=== PATIENT | male | born 1985 | race Caucasian/White ===

== ENCOUNTER 2017-01-11 12:04 | Emergency (ER) | payer OTHER ==
--- NOTE | ~2017-01-11 | CR127 ---
[facility] A Service of [facility] RADIOLOGY TEXT RESULTS PATIENT: YOVANNY LOCKETT LOCATION: SED : 85 UNIT #: [id number] AGE: [address]: Rodolfo Johnston SEX: M ORDER DR: [id number] [place] [id number] E MR#: [id number] Acc #: [id number] NAME: YOVANNY LOCKETT : 1985 SEX: M STUDY DATE/TIME: 01/11/2017 1240 UNIT: SED ROOM: STUDY DESCRIPTION: CR Foot Complete Min 3 View Rt Attending Physician: Rodolfo Johnston P.A.-C. Ordering Physician: Rodolfo Johnston P.A.-C. Primary Care Physician: Thaddeus Mcrae M.D. MEDICAL IMAGING REPORT This report is preliminary unless electronic signature is present. EXAM Right foot, 3 views, 01/11/2017 at 1240 hours. CLINICAL HISTORY 31-year-old man who felt a pop in his foot while running yesterday. Pain in the bottom of foot and arch of foot. COMPARISON None. FINDINGS AP, lateral, and oblique views demonstrate normal bone density. There is no acute fracture or dislocation. No significant plantar spurring. There is a small spur at the Achilles insertion. Note is made of lateral subluxation or deviation of the distal phalanx of the second toe, felt likely congenital. IMPRESSION No acute fracture or dislocation. Dictated by... Gloria David M.D. THIS IS AN ELECTRONICALLY VERIFIED REPORT Gloria David M.D. at 01/11/2017 2:30 PM RONANM/mercedes TD: 01/11/2017 14:25 JOB #: [id number] [facility] A Service of [facility] RADIOLOGY TEXT RESULTS PATIENT: YOVANNY LOCKETT LOCATION: SED : 85 UNIT #: [id number] AGE: [address]: Rodolfo Johnston PAC SEX: M ORDER DR: MEDICAL IMAGING REPORT Page 1 of 1
== END 2017-01-11 13:38 | disposition home or self-care (01) ==
LOC: SED 12:04
DX: S93.601A Unspecified sprain of right foot, initial encounter (principal); R03.0 Elevated blood-pressure reading, without diagnosis of hypertension; X50.9XXA Other and unspecified overexertion or strenuous movements or postures, initial encounter; Y93.02 Activity, running; Y92.9 Unspecified place or not applicable
CPT/HCPCS: 29540; 73630; 99283